=== PATIENT | male | born 1990 | race Caucasian/White ===

== ENCOUNTER 2017-03-27 00:44 | Emergency (ER) | payer OTHER ==
[2017-03-27 00:48] VITALS: O2SAT 96
[2017-03-27] MEDS ORDERED: IBUPROFEN 600 MG TAB PO ONE (01:23)
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
[2017-03-27 02:07] VITALS: BP 134/74; PULSE 74; RESP 16; TEMP 97.9
== END 2017-03-27 01:58 | disposition home or self-care (01) ==
DX: S39.012A Strain of muscle, fascia and tendon of lower back, initial encounter (principal); F17.200 Nicotine dependence, unspecified, uncomplicated; V49.49XA Driver injured in collision with other motor vehicles in traffic accident, initial encounter; Y92.410 Unspecified street and highway as the place of occurrence of the external cause; Y99.8 Other external cause status; Y93.89 Activity, other specified

== ENCOUNTER 2017-09-27 20:29 | Emergency (ER) | payer OTHER ==
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
[2017-09-27 22:12] VITALS: BP 126/82
== END 2017-09-27 22:12 | disposition home or self-care (01) ==
DX: S16.1XXA Strain of muscle, fascia and tendon at neck level, initial encounter (principal); F17.200 Nicotine dependence, unspecified, uncomplicated; V43.52XA Car driver injured in collision with other type car in traffic accident, initial encounter; Y92.410 Unspecified street and highway as the place of occurrence of the external cause; Y99.8 Other external cause status; Y93.89 Activity, other specified